=== PATIENT | male | born 1980 | race Caucasian/White ===

== ENCOUNTER 2019-01-16 18:35 | Emergency (ER) | payer MEDICAID ==
[~2019-01-16] VITALS: Ht 182.9 cm; Wt 83.0 kg
[2019-01-16 18:43] VITALS: BP 125/81
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
[2019-01-16] MEDS ORDERED: SULF1TAB49 PO (20:04)
== END 2019-01-16 20:23 | disposition home or self-care (01) ==
LOC: ER 18:35
DX: L02.211 Cutaneous abscess of abdominal wall (principal); G89.29 Other chronic pain; F12.90 Cannabis use, unspecified, uncomplicated; Z88.0 Allergy status to penicillin; Z79.2 Long term (current) use of antibiotics
CPT/HCPCS: 99283